=== PATIENT | female | born 1950 | race Two or more races ===

== ENCOUNTER 2016-11-21 20:06 | Inpatient (IN) | payer MEDICARE, OTHER ==
[~2016-11-21] VITALS: Ht 165.1 cm; Wt 74.4 kg
--- NOTE | 2016-11-21 20:15 | NUR ---
TO BED 4 AMBULATORY C/O L SIDED CO RADIATING TO BACK AND L ARM X2 DAYS. PT AAOX4 NO ACUTE DISTRESS NOTED, RESP EVEN AND UNLABORED. PLACE PT ON CARDAIC MONITORING, CONTINUOUS POX. PENDING ER MD CEBALLOS.
[2016-11-21] MEDS ORDERED: ONDANSETRON HCL/PF 4 MG/2 ML VIAL IVP ONE (20:30)
[2016-11-21] MEDS ORDERED: ASPIRIN 81 MG TAB.CHEW PO ONE (20:30)
[2016-11-21] MEDS ORDERED: MORPHINE SULFATE INJ 2 MG/ML DISP.SYRIN IV ONE (20:30)
[2016-11-21 20:41] LABS: BASOPHILS % (AUTO) 0.7 % (0.0-2.0); EOSINOPHILS # (AUTO) 0.2 /CMM (0.0-0.7); HEMATOCRIT 39 % (33-45); HEMOGLOBIN 12.9 g/dL (11.5-14.8); LYMPHOCYTES # (AUTO) 3.3 /CMM (0.8-4.8); LYMPHOCYTES % (AUTO) 48.7 % (20.0-44.0); MEAN CORPUSCULAR HEMOGLOBIN 29 PG (26.0-33.0); MEAN CORPUSCULAR HGB CONC 33 g/dl (31.0-36.0); MEAN CORPUSCULAR VOLUME 89 fL (82-100); MONOCYTES # (AUTO) 0.5 /CMM (0.1-1.30); MONOCYTES % (AUTO) 7.6 % (2.0-12.0); NEUTROPHILS # (AUTO) 2.7 /CMM (1.8-8.9); PLATELET COUNT (AUTO) 204 /CMM (150-450); RDW COEFFICIENT OF VARIATION 12.8 (11.5-15.0); RED BLOOD CELL COUNT(AUTO) 4.44 MIL/uL (4.0-5.2); WHITE BLOOD COUNT (AUTO) 6.7 K/uL (4.3-11.0)
[2016-11-21] MEDS ORDERED: ONDANSETRON HCL/PF 4 MG/2 ML VIAL ONE (20:50)
[2016-11-21] MEDS ORDERED: ASPIRIN 81 MG TAB.CHEW ONE (20:51)
[2016-11-21] MEDS ORDERED: MORPHINE SULFATE INJ 4 MG/ML DISP.SYRIN ONE (20:51)
[2016-11-21 20:56] LABS: INR 0.95 (0.87-1.13); PROTHROMBIN TIME 9.9 SECS (9.5-12.7)
[2016-11-21 21:00] LABS: TROPONIN I < 0.017 ng/mL (0.00-0.056)
[2016-11-21 21:06] LABS: CARBON DIOXIDE 28 mmol/L (21-32); CHLORIDE 105 mmol/L (98-107); CREATININE 0.7 mg/dL (0.6-1.3); GLUCOSE 114 mg/dL (74-106); POTASSIUM 4.3 mmol/L (3.5-5.1); SODIUM SERUM 140 mmol/L (136-145); UREA NITROGEN, BLOOD 18 mg/dL (7-18)
--- NOTE | 2016-11-21 21:08 | NUR ---
LAB RESULTS RECEIVED. ER MD DOW AWARE. PENDING DISPOSITION.
--- NOTE | 2016-11-21 21:28 | NUR ---
PAGED TEAGAN MCKEE DNP FOR PANEL ADMISSION
--- NOTE | 2016-11-21 21:46 | NUR ---
ER TALKING TO CASSIDY ANDERSON DNP REGARDING PT ADMISSION.
--- NOTE | 2016-11-21 22:22 | NUR ---
REPORT CALLED TO PIPE RECOVERY SPECIALISTNOAH MONROY. WILL TRANSPORT PT VIA ACLS PROTOCOL.
[2016-11-21 22:38] VITALS: BP 123/68
--- NOTE | 2016-11-21 22:38 | NUR ---
HEARING THERAPY DIRECTOR INITIAL NOTES PT ARRIVED VIA GURNEY FROM ER. WAS ABLE TO AMBULATE FROM THE GURNEY TO THE BED. PT IS A/O X4 ABLE TO MAKE NEEDS KNOWN, [place] SPEAKING. BREATHING EVENLY AND UNLABORED ON ROOM AIR. NO SIGNS OF SOB OR DISTRESS. LEFT WRIST #18 IS INTACT AND PATENT. TELE MONITOR SHOWING SR 63 WITH PAC'S. CARDIAC CONSULT FOR THE AM. WILL CONTINUE TO MONITOR PT.
[2016-11-21] MEDS ORDERED: ZOLPIDEM TARTRATE 5 MG TABLET PO PRN (23:30)
[2016-11-21] MEDS ORDERED: ONDANSETRON HCL/PF 4 MG/2 ML VIAL IVP PRN (23:30)
[2016-11-22] VITALS (7 sets, daily range): BP systolic 90–110; BP diastolic 48–65
--- NOTE | 2016-11-22 06:17 | NUR ---
MS RN CLOSING NOTES PT IS IN BED SLEEPING, COMPLAINTS OF SLIGHT HEADACHE ONLY REQUESTED A WET CLOTH FOR FOREHEAD. NO SIGNS OF SOB OR DISTRESS, BREATHING EVENLY ON ROOM AIR. TELE MONITOR SHOWS SR 63. ALL NEEDS WERE ANTICIPATED AND MET. CARDIAC CONSULT FOR AM. WILL ENDORSE TO DAY SHIFT.
[2016-11-22 06:27] LABS: BASOPHILS # (AUTO) 0.1 /CMM (0.0-0.2); EOSINOPHILS # (AUTO) 0.2 /CMM (0.0-0.7); EOSINOPHILS % (AUTO) 3.5 % (0.0-6.0); HEMATOCRIT 38 % (33-45); HEMOGLOBIN 12.7 g/dL (11.5-14.8); LYMPHOCYTES # (AUTO) 2.9 /CMM (0.8-4.8); MEAN CORPUSCULAR HEMOGLOBIN 30 PG (26.0-33.0); MEAN CORPUSCULAR HGB CONC 33 g/dl (31.0-36.0); MEAN CORPUSCULAR VOLUME 91 fL (82-100); MONOCYTES # (AUTO) 0.5 /CMM (0.1-1.30); MONOCYTES % (AUTO) 9.2 % (2.0-12.0); NEUTROPHILS # (AUTO) 2.1 /CMM (1.8-8.9); NEUTROPHILS % (AUTO) 36.3 % (43.0-81.0); PLATELET COUNT (AUTO) 175 /CMM (150-450); RDW COEFFICIENT OF VARIATION 13.9 (11.5-15.0); RED BLOOD CELL COUNT(AUTO) 4.22 MIL/uL (4.0-5.2); WHITE BLOOD COUNT (AUTO) 5.8 K/uL (4.3-11.0)
[2016-11-22 07:07] LABS: ALBUMIN 3.2 g/dL (3.4-5.0); BILIRUBIN,TOTAL 0.9 mg/dL (0.2-1.0); CALCIUM, SERUM 8.5 mg/dL (8.5-10.1); CREATININE 0.7 mg/dL (0.6-1.3); PHOSPHORUS 3.9 mg/dL (2.5-4.9); TOTAL PROTEIN, SERUM 6.5 g/dL (6.4-8.2)
--- NOTE | 2016-11-22 08:30 | NUR ---
RN MS NOTES PT IN BED, AWAKE, ALERT AND ORIENTED, PAIN MEDICATION GIVEN FOR HEADACHE, VERBALIZED RELIEF, PLAN OF CARE DISCUSSED WITH PT, VERBALIZED UNDERSTANDING, CALL LIGHT WITHIN REACH, NEEDS ATTENDED.
[2016-11-22] MEDS: FAMOTIDINE (20 MG) 20 MG TABLET PO SCH ×2 (08:41→20:16)
[2016-11-22] MEDS: ASPIRIN EC 81 MG TABLET.DR PO SCH (08:41)
[2016-11-22] MEDS: ACETAMINOPHEN 325 MG TABLET PO PRN ×3 (08:42→23:52)
[2016-11-22] MEDS: CARVEDILOL 6.25 MG TABLET PO SCH ×2 (09:30→20:15)
[2016-11-22 09:39] LABS: THYROID STIMULATING HORMONE 3.559 uIU/mL (0.358-3.74)
--- NOTE | 2016-11-22 13:00 | NUR ---
RN MS NOTES PT IN BED, RESTING, FAMILY AT BEDSIDE, PT SEEN BY DR. COATES AND DR. FONTANEZ, CALL LIGHT PLACED WITHIN REACH, ASSISTED WITH NEEDS.
--- NOTE | 2016-11-22 18:44 | NUR ---
RN MS NOTES PT IN BED, AWAKE, ALERT AND ORIENTED, NO COMPLAINT OF PAIN AT THIS TIME, RESPIRATIONS NORMAL AND NOT LABORED, TOLERATING CURRENT DIET WELL, PM CARE RENDERED, CALL LIGHT WITHIN REACH AT ALL TIMES.
--- NOTE | 2016-11-22 19:05 | NUR ---
MS RN OPENING NOTES: RECEIVED PT IN BED AND IS WITH 3 FAMILY MEMBERS. PT IS RESTING IN BED AND IS A/OX3. PT IS BULGARIAN SPEAKING ONLY BUT CAN UNDERSTAND SOME [place]. NO COMPLAINTS OF PAIN AT THIS TIME. NO S/S OF DISTRESS. NO SOB. PT HAS IV ON L WRIST #18G AND IS PATENT AND INTACT. WILL CONTINUE TO MONITOR PT.
[2016-11-22] MEDS: IV NS 0.9% 1,000 ML IV PRN (19:35)
--- NOTE | 2016-11-22 20:15 | NUR ---
MS RN NOTES: COREG WITHHELD D/T DECREASED BP. WILL CONTINUE TO MONITOR PT.
--- NOTE | 2016-11-22 20:30 | NUR ---
MS RN NOTES: LEGS WERE ELEVATED. WILL RE-CHECK BP AGAIN.
--- NOTE | 2016-11-22 23:55 | NUR ---
MS RN NOTES: PT COMPLAINED OF MILD PAIN. PT WAS ADMINISTERED TYLENOL 650MG PO. WILL CONTINUE TO MONITOR PT.
[2016-11-23] MEDS: IV NS 0.9% 1,000 ML IV PRN ×2 (06:30→20:14)
--- NOTE | 2016-11-23 06:44 | NUR ---
MS RN CLOSING NOTES: ALL NEEDS WERE ATTENDED AND ANTICIPATED FOR. PT IS IN BED, AWAKE AND RESTING. FAMILY MEMBER AT BEDSIDE. PT IS A/OX3. PT IS [place] SPEAKING ONLY BUT CAN UNDERSTAND SOME [place]. NO COMPLAINTS OF PAIN AT THIS TIME. NO S/S OF DISTRESS OR SOB. PT HAS IV ON L WRIST 18G AND IS BEING INFUSED WITH IV 0.9 % NS AT 100ML/HR. WILL ENDORSE TO AM NURSE FOR VIRGILIO.
[2016-11-23 06:46] LABS: BASOPHILS % (AUTO) 0.6 % (0.0-2.0); EOSINOPHILS # (AUTO) 0.2 /CMM (0.0-0.7); EOSINOPHILS % (AUTO) 3.8 % (0.0-6.0); HEMATOCRIT 38 % (33-45); HEMOGLOBIN 12.8 g/dL (11.5-14.8); LYMPHOCYTES # (AUTO) 2.5 /CMM (0.8-4.8); LYMPHOCYTES % (AUTO) 46.7 % (20.0-44.0); MEAN CORPUSCULAR HEMOGLOBIN 30 PG (26.0-33.0); MEAN CORPUSCULAR HGB CONC 34 g/dl (31.0-36.0); MEAN CORPUSCULAR VOLUME 90 fL (82-100); MONOCYTES # (AUTO) 0.5 /CMM (0.1-1.30); MONOCYTES % (AUTO) 9.2 % (2.0-12.0); NEUTROPHILS # (AUTO) 2.2 /CMM (1.8-8.9); NEUTROPHILS % (AUTO) 39.7 % (43.0-81.0); PLATELET COUNT (AUTO) 169 /CMM (150-450); RDW COEFFICIENT OF VARIATION 13.8 (11.5-15.0); RED BLOOD CELL COUNT(AUTO) 4.23 MIL/uL (4.0-5.2); WHITE BLOOD COUNT (AUTO) 5.4 K/uL (4.3-11.0)
[2016-11-23 07:02] LABS: BILIRUBIN,TOTAL 0.7 mg/dL (0.2-1.0); CALCIUM, SERUM 8.1 mg/dL (8.5-10.1); CREATININE 0.7 mg/dL (0.6-1.3); PHOSPHORUS 3.6 mg/dL (2.5-4.9); POTASSIUM 4.3 mmol/L (3.5-5.1); TOTAL PROTEIN, SERUM 6.3 g/dL (6.4-8.2)
--- NOTE | 2016-11-23 07:30 | NUR ---
RN MS NOTES PT IN BED, AWAKE, ALERT AND ORIENTED, NO COMPLAINT OF PAIN AT THIS TIME, ASSISTED TO BATHROOM NEEDED, IV FLUIDS INFUSING WELL, CALL LIGHT WITHIN REACH, NEEDS ATTENDED.
[2016-11-23 08:00] VITALS: BP 107/67
[2016-11-23] MEDS: ACETAMINOPHEN 325 MG TABLET PO PRN ×2 (08:02→23:25)
[2016-11-23] MEDS: ATORVASTATIN 10 MG TABLET PO SCH (08:02)
[2016-11-23] MEDS: FAMOTIDINE (20 MG) 20 MG TABLET PO SCH ×2 (08:02→21:27)
[2016-11-23] MEDS: ASPIRIN EC 81 MG TABLET.DR PO SCH (08:02)
[2016-11-23] MEDS: CARVEDILOL 6.25 MG TABLET PO SCH ×2 (09:00→21:27)
--- NOTE | 2016-11-23 12:52 | NUR ---
RN MS NOTES PT IN BED, AWAKE, NO COMPLAINT OF PAIN AT THIS TIME, BREATHING PATTERN NORMAL, ASSISTED TO BATHROOM NEEDED, IV FLUIDS INFUSING WELL, TOLERATING CURRENT DIET WELL, FAMILY MEMBER AT BEDSIDE.
[2016-11-23 16:00] VITALS: BP 121/64
--- NOTE | 2016-11-23 19:05 | NUR ---
MS RN OPENING NOTES: RECEIVED PT IN BED AND IS RESTING IN BED. PT IS A/OX4 AND IS CROATIAN SPEAKING ONLY. FAMILY MEMBERS AT BEDSIDE. NO COMPLAINTS OF PAIN AT THIS TIME. NO S/S OF DISTRESS NOTED AT THIS TIME. NO SOB. PT HAS IV ON L WRIST 18G AND IS BEING INFUSED WITH IV NS AT 100ML/HR. CALL LIGHT WITHIN PT'S REACH. BED KEPT IN LOW, LOCKED POSITION, AND SIDE RAILS X 2UP. WILL CONTINUE TO MONITOR PT.
[2016-11-23 20:00] VITALS: BP 122/66
[2016-11-23 20:34] VITALS: BP 122/66
--- NOTE | 2016-11-23 23:25 | NUR ---
MS RN NOTES: PT REQUESTED FOR TYLENOL 650MG FOR HEADACHE. ADMINISTERED MED AND WILL CONTINUE TO MONITOR PT.
[2016-11-24] MEDS: IV NS 0.9% 1,000 ML IV PRN ×2 (05:55→20:12)
--- NOTE | 2016-11-24 06:31 | NUR ---
MS RN CLOSING NOTES: ALL NEEDS WERE ATTENDED AND ANTICIPATED FOR. PT IS IN BED, RESTING AND I ASLEEP. PT HAS BEEN A/OX4 THROUGHOUT SHIFT. PT IS INDIAN SPEAKING ONLY BUT CAN UNDERSTAND LITTLE [place]. CO COMPLAINTS OF PAIN AT THIS TIME. NO S/S OF DISTRESS NOTED AT THIS TIME. BREATHING EVEN AND UNLABORED. PT HAS IV ON L WRIST #18G AND IS BEING INFUSED WITH NS AT 100ML/HR. CALL LIGHT WITHIN PT'S REACH, BED KEPT IN LOW, LOCKED POSITION, AND SIDE RAILS X 2 UP. WILL ENDORSE TO AM NURSE FOR VIRGILIO.
--- NOTE | 2016-11-24 07:15 | NUR ---
MS RN NOTES PATIENT IN BED, AWAKE. A/O X4. ON ROOM AIR, NO SOB. IV NS INFUSING AT 100ML/HR, TOLERATING WELL. APPEARS COMFORTABLE IN BED, NO C/O PAIN AT THIS TIME. PLACE CALL LIGHT WITHIN REACH. WILL CONT TO MONITOR.
[2016-11-24 08:00] VITALS: BP 116/67
[2016-11-24] MEDS: FAMOTIDINE (20 MG) 20 MG TABLET PO SCH ×2 (08:39→20:52)
[2016-11-24] MEDS: ATORVASTATIN 10 MG TABLET PO SCH (08:40)
[2016-11-24] MEDS: CARVEDILOL 6.25 MG TABLET PO SCH ×2 (08:40→20:53)
[2016-11-24] MEDS: ASPIRIN EC 81 MG TABLET.DR PO SCH (08:40)
[2016-11-24] MEDS ORDERED: ATOR20TA PO (11:55)
[2016-11-24] MEDS ORDERED: RANI150C4 PO (11:55)
[2016-11-24] MEDS ORDERED: CALC-108 PO (11:55)
[2016-11-24] MEDS ORDERED: OMEG500C PO (11:55)
[2016-11-24] MEDS: ACETAMINOPHEN 325 MG TABLET PO PRN (14:05)
[2016-11-24 16:00] VITALS: BP 123/70
--- NOTE | 2016-11-24 19:10 | NUR ---
MS RN CLOSING NOTES PATIENT IN BED, NOT IN DISTRESS. NO EPISODE OF CHEST PAIN DURING THE SHIFT. NO C/O PAIN OR ANY DISCOMFORT. HAD BOWEL MOVEMENT TODAY. CALL LIGHT WITHIN REACH. NPO MIDNIGHT, PATIENT IS FOR NM MYOCARDIAL STRESS IN AM. CONSENT FORM SIGNED AND PLACE IN THE CHART. ENDORSED TO CUSTOMER COUNTER ASSOCIATE RN FOR CONTINUITY OF CARE.
[2016-11-24 20:00] VITALS: BP 126/64
--- NOTE | 2016-11-24 20:34 | NUR ---
RN NOTES RECEIVED PATIENT IN BED, ALERT AND ORIENTED X4, CALM, NO SOB, NO RESPIRATORY DISTRESS, DENIES CHEST PAIN, DENIES ANY PAIN AT THIS TIME, ON ROOM AIR, RIGHT WRIST PERIPHERAL LINE IS PATENT AND INFUSING WELL, NEEDS ATTENDED, CALL LIGHT WITHIN REACH.
--- NOTE | 2016-11-25 06:25 | NUR ---
RN NOTES PATIENT IN BED, ALERT AND AWAKE, NO DISTRESS, NO CHEST PAIN AT THIS TIME, NPO SINCE MIDNIGHT, PATIENT EDUCATED ON STRESS TEST PROCEDURE IN AM, RIGHT WRIST PERIPHERAL LINE IS PATENT AND INFUSING WELL, NEEDS ATTENDED, CALL LIGHT WITHIN REACH.
[2016-11-25] MEDS: IV NS 0.9% 1,000 ML IV PRN (07:13)
--- NOTE | 2016-11-25 07:41 | NUR ---
MS/RN OPENING NOTE PATIENT RECEIVED IN BED AWAKE IN STABLE CONDITION. ALERT AND ORIENTED TIMES 4. NO SIGNS OF ACUTE DISTRESS. NO COMPLAIN OF PAIN OR DISCOMFORT. ALL NEEDS ATTENDED TO. CALL LIGHT WITHIN REACH. WILL CONTINUE TO MONITOR TO ENSURE SAFETY.
[2016-11-25 08:00] VITALS: BP 123/77
[2016-11-25] MEDS ORDERED: REGADENOSON 0.4 MG/5 ML DISP.SYRIN IVP ONE (08:30)
[2016-11-25] MEDS: CARVEDILOL 6.25 MG TABLET PO SCH (09:00)
[2016-11-25] MEDS: ACETAMINOPHEN 325 MG TABLET PO PRN (10:01)
[2016-11-25] MEDS: ATORVASTATIN 10 MG TABLET PO SCH (10:01)
[2016-11-25] MEDS: FAMOTIDINE (20 MG) 20 MG TABLET PO SCH (10:01)
[2016-11-25] MEDS: ASPIRIN EC 81 MG TABLET.DR PO SCH (10:01)
--- NOTE | 2016-11-25 12:01 | NUR ---
MS/RN SEEN BY DR MICHAEL PATIENT SEEN BY DR MICHAEL WITH NO NEW ORDERS AT THIS TIME.
[2016-11-25 16:00] VITALS: BP 106/54
--- NOTE | 2016-11-25 17:04 | NUR ---
MS/CUSTOM SEAMSTRESS PATIENT DISCHARGE HOME IN STABLE CONDITION ACCOMPANIED BY DAUGHTER. ALERT AND ORIENTED TIMES 4. NO SIGNS OF ACUTE DISTRESS, NO COMPLAIN OF PAIN OR DISCOMFORT. DISCHARGE EDUCATION AND TEACHING PROVIDED AND ALSO MADE AWARE TO FOLLOW UP WITH PRIMARY CARE PHYSICIAN. PATIENT VERBALIZED UNDERSTANDING OF TEACHINGS. ALL NEEDS ATTENDED TO. Addendum: 11/25/16 at 1711 by TAE MATOS RN IV LINE AND NAME BAND REMOVED.
== END 2016-11-25 17:31 | disposition home or self-care (01) | DRG 206 ==
LOC: ER 20:09 → TELE 22:24 → MED 11-22 11:24
PROVIDERS: ADMIT Nurse Practitioner Acute Care; ATTEND Nurse Practitioner Acute Care
DX: M94.0 Chondrocostal junction syndrome [Tietze] (principal); E44.0 Moderate protein-calorie malnutrition; B34.9 Viral infection, unspecified; E78.5 Hyperlipidemia, unspecified; D72.820 Lymphocytosis (symptomatic); R73.9 Hyperglycemia, unspecified; Z68.27 Body mass index [BMI] 27.0-27.9, adult
CPT/HCPCS: 36415; 71010-TC; 80048-TC; 80053-TC; 80061-TC; 83735-TC; 84100-TC; 84443-TC; 84484-TC; 85025-TC; 85730-TC; 87081-TC; 93307-TC; A4606; A9502; J2270; J2405; J2785; J7030; Z7610

== ENCOUNTER 2019-12-05 19:58 | Emergency (ER) | payer OTHER ==
[~2019-12-05] VITALS: Ht 152.4 cm; Wt 72.6 kg
[~2019-12-05 19:58] MED LIST: ATOR20TA PO; CALC-261 PO; OMEG500C PO; RANI150C4 PO
--- NOTE | 2019-12-05 20:10 | NUR ---
PT AAOX4. BIBS FOR C/O R RIBS PAIN WORSE ON DEEP BREATHING S/P FALL 1 WK AGO. NO ACUTE DISTRESS NOTED. MD AT BEDSIDE FOR EVAL. AWAITING ORDERS.
[2019-12-05] MEDS ORDERED: KETOROLAC TROMETHAMINE INJ 30 MG/ML VIAL IM ONE (20:30)
[2019-12-05] MEDS ORDERED: KETOROLAC TROMETHAMINE 15 MG/ML VIAL ONE (20:33)
--- NOTE | 2019-12-05 20:42 | NUR ---
RADIOLOGY AT BEDSIDE
--- NOTE | 2019-12-05 21:50 | NUR ---
Patient discharged to home in stable condition. Written and verbal after care instructions given. Patient verbalizes understanding of instruction and RX. Pt ambulated with steady gait. vss.
[2019-12-05 21:51] VITALS: BP 132/72
== END 2019-12-05 21:51 | disposition home or self-care (01) ==
LOC: ER 20:13
DX: S20.211A Contusion of right front wall of thorax, initial encounter (principal); Z90.49 Acquired absence of other specified parts of digestive tract; Z79.899 Other long term (current) drug therapy; W18.09XA Striking against other object with subsequent fall, initial encounter; Y93.89 Activity, other specified; Y92.89 Other specified places as the place of occurrence of the external cause; Y99.8 Other external cause status
CPT/HCPCS: 71100; 96372; 99283; J1885